=== PATIENT | male | born 1975 | race Caucasian/White ===

== ENCOUNTER 2023-06-26 08:28 | Day surgery (SDC) | payer OTHER ==
[2023-06-21 10:41] VITALS: BP 139/93
[~2023-06-26] VITALS: Ht 190.5 cm; Wt 138.6 kg
[~2023-06-26 08:28] MED LIST: ALLER-EASE180 MG PO; BELBUCA75 MCG; CEFAZOLIN SODIUM 3 GM/30 ML SYR IV SCH; CELEBREX100 MG PO; CITALOPRAM HBR20 MG PO; COZAAR50 MG PO; DEXAMETHASONE SOD PHOS 4 MG/ML VIAL ONE; FAMOTIDINE 20 MG/ 2 ML VIAL ONE; FLOMAX0.4 MG PO; FLONASE ALLERG9.9 ML; IBLOOD GLUCOSE TEST STRIP 1 EA TEST VI PRN; KETOROLAC TROMETHAMINE 30 MG/ML VIAL ONE; LACTATED RINGER'S 1,000 ML IV ONE; LACTATED RINGER'S 1,000 ML IV SCH; LIDOCAINE HCL 1% 5 ML SDV INJ ONE; METOCLOPRAMIDE HCL 10 MG/2 ML SDV ONE; MIDAZOLAM HCL 2 MG/2 ML VIAL ONE; TOPAMAX50 MG PO; fentaNYL citrate 100 MCG/2 ML VIAL ONE; ondansetron HCL 4 MG/2 ML VIAL ONE; propofoL 200 MG/20 ML VIAL ONE
[2023-06-26 08:36] VITALS: BP 131/76
[2023-06-26] MEDS ORDERED: PHENTERMINE H37.5 M1 PO (08:51)
[2023-06-26] MEDS ORDERED: VITAMIN D350 MC3 PO (08:51)
[2023-06-26] MEDS ORDERED: OXYMETAZOLINE HCL 30 ML BTL NAS SCH (09:00)
[2023-06-26] MEDS ORDERED: dexmedeTOMIDine HCl 200 MCG/2 ML VIAL ONE (09:53)
[2023-06-26 11:03] VITALS: BP 105/65
[2023-06-26] MEDS ORDERED: HYDROCODONE/ACETA 5/325 TAB PO PRN (11:15)
[2023-06-26 12:04] VITALS: BP 118/67
--- NOTE | 2023-06-26 13:04 | OR ---
[facility] [address], [place] [address] Signed DATE OF OPERATION: 06/26/2023 SURGEON: Maged Garcia MD PREOPERATIVE DIAGNOSIS: Inferior turbinate hypertrophy. POSTOPERATIVE DIAGNOSIS: Inferior turbinate hypertrophy. PROCEDURE: Cautery inferior turbinates submucosal. ANESTHESIA: General LMA, Bertin JOSHUA. PREOPERATIVE HISTORY: Mr. Lucas is a 47-year-old man with chronic nasal congestion, drainage. CT scan of the sinuses essentially normal. He has been noted to have turbinate hypertrophy unresponsive to appropriate medications. He is taken to the operating for the above-mentioned procedures. OPERATIVE PROCEDURE AND FINDINGS: After informed consent, the patient was taken to the operating room, placed in the supine position where general LMA anesthesia was induced. The patient and procedure were verified. The patient received preoperative intranasal oxymetazoline and intravenous Ancef. The patient was repositioned. The nasal passages examined with the headlight and speculum. The turbinates were decongested. Septum midline nonobstructive. The inferior turbinates were then cauterized starting on the left side with a long handle needle point cautery. Multiple transmucosal passes on the inferior turbinate starting anteriorly extending all the way back posteriorly medial inferior surface cauterized excellent shrinkage. Minimal bleeding. The same procedure on the right inferior turbinate. Airway was improved. Packing was then placed. Trimmed Merocel one piece each side coated with Neosporin tied anteriorly over a pad. The pharynx was suctioned clear of blood secretions. The patient was then awakened, extubated, and transported to recovery room in good condition. No complications. BLOOD LOSS: Minimal. Electronically Signed By: MAGED GARCIA MD 06/26/23 1304 PATIENT NAME: LUCIEN LUCAS OPERATIVE REPORT DATE OF : 73 REPORT #: [id number] PHYSICIAN: MAGED GARCIA MD PCP: MARILEE MELARA REPORT IS CONFIDENTIAL AND NOT TO BE RELEASED WITHOUT AUTHORIZATION [address] [place], [place] [address] Signed SPECIMEN: No specimen. DRAINS: No drains. PACKING: One piece of Merocel each nostril. Mgaed Garcia MD GC/MODL /[id number] Copies: ~ Electronically Signed By: MAGED GARCIA MD 06/26/23 1304 PATIENT NAME: LUCIEN LUCAS OPERATIVE REPORT DATE OF : 73 REPORT #: [id number] PHYSICIAN: MAGED GARCIA MD PCP: MARILEE MELARA REPORT IS CONFIDENTIAL AND NOT TO BE RELEASED WITHOUT AUTHORIZATION
--- NOTE | 2023-06-26 21:33 | EKG ---
[facility] [address] [facility] [place] [address] Signed Normal sinus rhythm Normal ECG No previous ECGs available Confirmed by Lucien Hennessy MD () on 06/26/2023 9:34:01 PM Electronically Signed By: LUCIEN HENNESSY MD 06/26/232132 PATIENT NAME: LUCIEN LUCAS Electrocardiogram DATE OF : 73 PHYSICIAN: LUCIEN HENNESSY MD REPORT #: [id number] REPORT IS CONFIDENTIAL AND NOT TO BE RELEASED WITHOUT AUTHORIZATION
== END 2023-06-26 12:25 | disposition home or self-care (01) ==
LOC: DS 08:28 → OPS 08:28 → DS 08:30 → OPS 08:30
PROVIDERS: ATTEND Otolaryngology
PROC: 095L7ZZ Destruction of Nasal Turbinate, Via Natural or Artificial Opening (ICD-10-PCS; principal; 2023-06-26 10:00)
DX: J34.3 Hypertrophy of nasal turbinates (principal); J30.9 Allergic rhinitis, unspecified; Z88.8 Allergy status to other drugs, medicaments and biological substances; Z79.899 Other long term (current) drug therapy
CPT/HCPCS: 00160; 80053; 85025; 93005; 93010; J0690; J1100; J1885; J2250; J2405; J2704; J2765; J3010; J7121